=== PATIENT | male | born 1995 | race Caucasian/White ===

== ENCOUNTER 2016-12-07 21:26 | Inpatient (IN) | payer OTHER ==
[~2016-12-07] VITALS: Ht 167.6 cm; Wt 59.0 kg
[~2016-12-07 21:26] MED LIST: MULTIVITAMIN1 TAB PO; NATURAL IRON65 MG PO
--- NOTE | 2016-12-07 21:41 | NUR ---
PT WITH HX GASTROSCHISIS BIBA FROM C/O 3 SYNCOPAL EPISODES ONE HOUR AGO, ABDOMINAL PAIN, NAUSEA AND RECTAL BLEEDING. PER PT ABDOMINAL PAIN AND RECTAL BLEEDING IS CHRONIC BUT REPORTS THE BLEEDING WAS MORE THAN USUAL TODAY. PT REPORTS FEELING WEAK AND TIRED TODAY. SYNCOPAL EPISODES WITNESSED BY GIRLFRIEND. PER GIRFRIEND PT DID NOT FALL OR HIT HEAD. SHE REPORTS GUIDING HIM DOWN SO HE WON GET HURT. PT A/ X4. RESP UNLABORED. SKIN PALE.
--- NOTE | 2016-12-07 22:09 | ED GI/GU/ABDOMINAL COMPLAINT ---
History of Present Illness General Chief Complaint: General Adult Stated Complaint: BIBA RECTAL BLEEDING, SYNCOPE Source: patient Exam Limitations: no limitations Vital Signs & Intake/Output Vital Signs & Intake/Output Vital Signs Date Time Temp Pulse Resp B/P B/P Pulse O2 O2 Flow FiO2 Mean Ox Delivery Rate 12/07 2355 98.0 105 16 129/78 96 Room Air 12/07 2340 98.1 102 16 110/65 96 12/07 2254 120 18 120/75 100 12/07 2133 98.3 127 20 138/63 100 Room Air ED Intake and Output 12/08 0000 12/07 1200 Intake Total Output Total Balance Patient 130 lb Weight Allergies Coded Allergies: lactose (LACTOSE INTOLERANT 12/07/16) latex (HIVES 12/07/16) Reconcile Medications No Known Home Medications Triage Note: PT WITH HX GASTROSCHISIS BIBA FROM C/O 3 SYNCOPAL EPISODES ONE HOUR AGO, ABDOMINAL PAIN, NAUSEA AND RECTAL BLEEDING. PER PT ABDOMINAL PAIN AND RECTAL BLEEDING IS CHRONIC BUT REPORTS THE BLEEDING WAS MORE THAN USUAL TODAY. PT REPORTS FEELING WEAK AND TIRED TODAY. SYNCOPAL EPISODES WITNESSED BY GIRLFRIEND. PER GIRFRIEND PT DID NO FALL OR HIT HEAD. SHE REPORTS GUIDING HIM DOWN SO HE WON GET HURT. PT A/ X4. RESP UNLABORED. SKIN PALE. Triage Nurses Notes Reviewed? yes Duration: week(s):, getting worse Timing: recent history Radiation: no radiation Activities at Onset: none No Modifying Factors: none HPI: 21-year-old male comes into the emergency room for further evaluation of blood in his stool and syncopal episodes. 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 Patient has had multiple abdominal surgeries including multiple bowel resections. He has had issues with his abdomen is entirely. He currently lives in [place]. He used to go to [employer] even when he lived in [place]. He is currently visiting family up here. He reports that he's been having some intermittent in bright red/dark blood in his stool and bowel movements intermittently for many months now. He will get associated pain with it. She had a colonoscopy a little over a year ago which she was told he had external and internal hemorrhoids. He had external hemorrhoids fixed but never followed up for the internal hemorrhoids. Patient admits that he is not compliant taking his vitamin supplements and iron at home. Today he was feeling very weak and lightheaded and feeling like he was going to pass out. He was in bathroom with his girlfriend when she witnessed him having a syncopal episode that lasted for a few seconds. She was able to catch him before he fell to the ground. Denies any chest pain. Denies any drug use other than some marijuana use intermittently. Denies any other associated symptoms. Pain is more localized in the left lower abdomen. (SHERINE CASTANEDA) Past History Travel History Traveled to [place] past 21 day No Medical History Any Pertinent Medical History? see below for history Gastrointestinal: GASTROSCESIS Surgical History Surgical History: multiple abdominal surgeries from gastroscesis Psychosocial History What is your primary language Beninese Tobacco Use: Current Daily Use Daily Tobacco Use Amount/Type: =< 4 Cigarettes daily Family History Hx Contributory? No (SHERINE CASTANEDA) Review of Systems Review of Systems Constitutional: Reports: no symptoms. EENTM: Reports: no symptoms. Respiratory: Reports: no symptoms. Cardiovascular: Reports: see HPI. GI: Reports: see HPI. Genitourinary: Reports: no symptoms. Musculoskeletal: Reports: no symptoms. Skin: Reports: no symptoms. Neurological/Psychological: Reports: no symptoms. Hematologic/Endocrine: Reports: see HPI. Immunologic/Allergic: Reports: no symptoms. All Other Systems: Reviewed and Negative (SHERINE CASTANEDA) Physical Exam Physical Exam General Appearance: alert, awake, thin Head: atraumatic Eyes: Bilateral: normal appearance. Ears, Nose, Throat, Mouth: hearing grossly normal, moist mucous membrane Neck: normal inspection, full range of motion Respiratory: normal breath sounds, no respiratory distress Cardiovascular: regular rate/rhythm, tachycardia Gastrointestinal: soft, tenderness Rectal: external hemorrhoids, no thrombosed hemorrhoids, positive guaiac, no gross blood, Back: normal inspection Extremities: normal range of motion Neurologic/Psych: awake, alert, oriented x 3, normal gait, abnormal cerebellar tests Skin: pallor Core Measures ACS in differential dx? No Severe Sepsis Present: No Septic Shock Present: No (SHERINE CASTANEDA) Progress Differential Diagnosis: AMI, bowel obstruction, cholecystitis, diverticulitis, gastritis, hepatitis, hernia, ischemic bowel, inflamm bowel dis, pancreatitis, prostatitis, peptic ulcer, PUD/GERD, urethritis, internal hemorrhoids, external hemorrhoids, diverticulosis, Plan of Care: Orders Procedure Date/time Status Regular Diet 12/08 B Active CBC WITHOUT DIFFERENTIAL 12/08 599 Active BASIC ELECTROLYTES PLUS BUN&CR 12/08 599 Active LACTIC ACID 12/08 0101 Active Pathway - chart 12/08 002 Active House Staff 12/08 002 Active VTE Mechanical Prophylaxis 12/08 UNK Active Patient Data 12/07 2334 Active OXYGEN SETUP (GEN) 12/07 232 Active Saline Lock 12/07 2325 Active Admit to inpatient 12/07 232 Active Vital Signs 12/07 232 Active Activity/Ambulation 12/07 232 Active Code Status 12/07 232 Active BLOOD PRODUCT PICKUP 12/07 230 Active LEUKOCYTE POOR (PACKED CELLS) 12/07 225 Active Intake & Output 12/07 2246 Active PARTIAL THROMBOPLASTIN TIME 12/07 2200 Complete PROTHROMBIN TIME 12/07 2200 Complete LACTIC ACID 12/07 2200 Complete COMPREHENSIVE METABOLIC PANEL 12/07 2200 Complete CBC WITHOUT DIFFERENTIAL 12/07 2200 Complete EKG 12/07 2200 Active TYPE & SCREEN (NOT X-MATCH) 12/07 2200 Active Current Medications Sig/Kristi Start time Last Medication Dose Stop Time Status Admin Acetaminophen 650 MG Q6P PRN 12/08 29 UNVr (Tylenol) Acetaminophen 1,000 MG Q6P PRN 12/08 003 UNVr (Ofirmev) Oxycodone/ 1 TAB Q6P PRN 12/08 29 UNVr Acetaminophen (Percocet) Potassium Chloride 40 MEQ ONCE ONE 12/08 29 UNVr (K-Dur) 12/08 30 Laboratory Tests 12/07/162216: Anion Gap 11, Estimated GFR > 60, BUN/Creatinine Ratio 11.1, Glucose 107 H, Lactic Acid 2.9 H, Calcium 7.5 L, Total Bilirubin 0.3, AST 16 L, ALT 40, Alkaline Phosphatase 39, Total Protein 4.9 L, Albumin 3.1 L, Globulin 1.8 L, Albumin/Globulin Ratio 1.7, PT 12.5, INR 1.19 H, APTT 24 L, CBC w Diff NO MAN DIFF REQ, RBC 2.46 L, MCV 69.1 L, MCH 21.5 L, RDW 24.8 H, MPV 8.1, Gran % 89.3 H, Lymphocytes % 6.3 L, Monocytes % 3.7, Eosinophils % 0.2, Basophils % 0.5, Absolute Granulocytes 9.1 H, Absolute Lymphocytes 0.6 L, Absolute Monocytes 0.4, Absolute Eosinophils 0, Absolute Basophils 0.1, PUBS MCHC 31.1 L Diagnostic Imaging: Viewed by Me: CT Scan. Discussed w/RAD: CT Scan. Radiology Impression: SERVICE DATE: 12/07/16 EXAM TYPE: CAT - CT ABD & PELVIS ANGIOGRAM EXAMINATION: CT ANGIOGRAM ABDOMEN AND PELVIS CLINICAL INFORMATION: Abdominal pain, rectal bleeding, rule out ischemic colitis COMPARISON: None TECHNIQUE: Multiple axial images were obtained through the abdomen and pelvis prior to and following the administration of 83 mL of Optiray 320 intravenous contrast. Images were reviewed on a dedicated 3-D workstation. DLP: 514.36 mGy-cm FINDINGS: The lung bases are clear. The liver is homogeneous in attenuation without intrahepatic biliary ductal dilatation. The gallbladder is were not discretely visualized and may be decompressed. The spleen, pancreas, and adrenal glands are within normal limits. Bilateral nephrograms are symmetric. No hydronephrosis. No obstructing renal or ureteral calculi are present. The urinary bladder is moderately distended, with some excreted contrast material dependently. The prostate and seminal vesicles are unremarkable. Assessment of the bowel is somewhat limited due to a lack of intra -abdominal fat. However, the colon appears to entirely lie in the central to left abdomen, suspicious for sequelae of malrotation. There is diffuse prominent colonic wall thickening with some surrounding stranding, compatible with a colitis. No pneumatosis is seen. The small bowel lies in the central to right abdomen and appears mostly collapsed. No free fluid or free air is present. Although assessment of the venous structures is limited due to the phase of postcontrast imaging, the superior mesenteric vein is suspected to lie to the left of the superior mesenteric artery, supporting a diagnosis of malrotation. The aorta is normal in caliber. The celiac artery is patent. The superior mesenteric artery is patent and appears to give rise to the right hepatic artery. The bilateral renal arteries are patent. The inferior mesenteric artery is patent. Iliac arteries appear unremarkable bilaterally. No appreciable lymphadenopathy is seen by size criteria. No acute osseous findings. IMPRESSION: Diffuse wall thickening of the colon, consistent with colitis which may be inflammatory or infectious in etiology. No specific findings for ischemic colitis. The entirety of the colon appears to lie in the central to left abdomen , with small bowel located in the central to right abdomen; appearance favors intestinal malrotation. DICTATED BY: MIQUEL SHELTON MD DATE/TIME DICTATED:12/07 COURT CRIER:OCHOA DATE/TIME TRANSCRIBED:12/07/162352 CONFIDENTIAL, DO NOT COPY WITHOUT APPROPRIATE AUTHORIZATION. Initial ED EKG: normal intervals, normal p-waves, normal sinus rhythm, rate (101 ), nonspecific ST T wave chg (SHERINE CASTANEDA) Departure Departure Disposition: STILL A PATIENT Condition: Stable Clinical Impression Primary Impression: Lower GI bleed Secondary Impressions: Symptomatic anemia, Syncope Referrals: PATIENT HAS NO PRIMARY CARE DR (PCP/Family) Departure Forms: Customer Survey General Discharge Information Prescriptions: Current Visit Scripts No Known Home Medications Admission Note Spoke With: SARI CORONA MD Documentation of Exam: Documentation of any treatments & extenuating circumstances including Concerns Regarding Discharge (functional status, medication knowledge or non-compliance, living conditions, etc.) that warrant an admission rather than observation: Patient is severely anemic and will require blood transfusion. GI consultation. Serial H&H's. Positive guaiac on exam. No gross blood. (SHERINE CASTANEDA) PA/WOOL SHEARING SUPERVISOR Co-Sign Statement Statement: ED Attending supervision documentation- x I saw and evaluated the patient. I have also reviewed all the pertinent lab results and diagnostic results. I agree with the findings and the plan of care as documented in the PA's/WOOL SHEARING SUPERVISOR's documentation. [] I have reviewed the ED Record and agree with the PA's/WOOL SHEARING SUPERVISOR's documentation. [] Additions or exceptions (if any) to the PAs/WOOL SHEARING SUPERVISOR's note and plan are summarized below: [] (DANYELL HERNANDEZ,WINIFRED)
[2016-12-07 22:25] LABS: ABSOLUTE EOSINOPHIL COUNT 0 /CUMM (0.0-0.7); ABSOLUTE LYMPH COUNT 0.6 /CUMM (1.2-3.4); RED BLOOD CELL CT 2.46 /CUMM (4.70-6.10); WHITE BLOOD CELL COUNT 10.2 /CUMM (4.8-10.8)
[2016-12-07 22:28] LABS: ABSOLUTE BASOPHIL COUNT 0.1 /CUMM (0.0-0.2); ABSOLUTE GRANULOCYTE CT 9.1 /CUMM (1.4-6.5); ABSOLUTE MONOCYTE COUNT 0.4 /CUMM (0.10-0.60); BASOPHIL % 0.5 % (0.0-2.0); EOSINOPHIL % 0.2 % (0-5); GRANULOCYTE % 89.3 % (42.2-75.2); MEAN CORPUSCULAR HGB 21.5 PG (27.0-31.0); MEAN CORPUSCULAR HGB CONC 31.1 G/DL (33.0-37.0); MEAN PLATELET VOLUME 8.1 FL (7.4-10.4); PLATELET COUNT 187 /CUMM (130-400)
--- NOTE | 2016-12-07 22:32 | NUR ---
CRITICAL TEST RESULTS [id number] YENNIFER FARMER 21 M TESTS AND RESULTS: HCT 5.3. HGB 17.0 Results received and read back by: JOSE GAVIN Results received date and time: 12/07/162231 The following provider was notified of the results, and read the results back: SHERINE GARVEY Notified date and time: 12/07/16 at 2232
--- NOTE | 2016-12-07 22:39 | NUR ---
CRITICAL TEST RESULTS [id number] YENNIFER FARMER 21 M TESTS AND RESULTS: LACTIC 2.9 Results received and read back by: HO JOY Results received date and time: 12/07/162238 The following provider was notified of the results, and read the results back: GURU CARCAMO Notified date and time: 12/07/16 at 9822
[2016-12-07 22:42] LABS: PT 12.5 SEC (9.4-12.5); PTT 24 SEC (25-37)
[2016-12-07 22:44] LABS: MEAN CORPUSCULAR VOLUME 69.1 FL (80.0-94.0)
[2016-12-07 22:46] LABS: RBC DISTRIBUTION WIDTH 24.8 % (11.5-14.5)
--- NOTE | 2016-12-07 23:15 | NUR ---
PT A/O X4. RESP UNLABORED. SKIN WARM AND DRY. NO APPRENT DISTRESS. WILL CONTINUE TO MONITOR.
--- NOTE | 2016-12-07 23:26 | NUR ---
PT TO CR SCAN.
--- NOTE | 2016-12-07 23:47 | NUR ---
1ST UNIT [facility]
--- NOTE | 2016-12-07 23:58 | NUR ---
PT GOING TO ROOM 234-1
--- NOTE | 2016-12-07 23:58 | NUR ---
HOUSESTAFF AT BEDSIDE
[2016-12-08] VITALS (9 sets, daily range): BP systolic 116–132; BP diastolic 60–78
--- NOTE | 2016-12-08 00:16 | CT SCAN REPORT ---
EXAMINATION: CT ANGIOGRAM ABDOMEN AND PELVIS CLINICAL INFORMATION: Abdominal pain, rectal bleeding, rule out ischemic colitis COMPARISON: None TECHNIQUE: Multiple axial images were obtained through the abdomen and pelvis prior to and following the administration of 83 mL of Optiray 320 intravenous contrast. Images were reviewed on a dedicated 3-D workstation. DLP: 514.36 mGy-cm FINDINGS: The lung bases are clear. The liver is homogeneous in attenuation without intrahepatic biliary ductal dilatation. The gallbladder is were not discretely visualized and may be decompressed. The spleen, pancreas, and adrenal glands are within normal limits. Bilateral nephrograms are symmetric. No hydronephrosis. No obstructing renal or ureteral calculi are present. The urinary bladder is moderately distended, with some excreted contrast material dependently. The prostate and seminal vesicles are unremarkable. Assessment of the bowel is somewhat limited due to a lack of intra-abdominal fat. However, the colon appears to entirely lie in the central to left abdomen, suspicious for sequelae of malrotation. There is diffuse prominent colonic wall thickening with some surrounding stranding, compatible with a colitis. No pneumatosis is seen. The small bowel lies in the central to right abdomen and appears mostly collapsed. No free fluid or free air is present. Although assessment of the venous structures is limited due to the phase of postcontrast imaging, the superior mesenteric vein is suspected to lie to the left of the superior mesenteric artery, supporting a diagnosis of malrotation. The aorta is normal in caliber. The celiac artery is patent. The superior mesenteric artery is patent and appears to give rise to the right hepatic artery. The bilateral renal arteries are patent. The inferior mesenteric artery is patent. Iliac arteries appear unremarkable bilaterally. No appreciable lymphadenopathy is seen by size criteria. No acute osseous findings. IMPRESSION: Diffuse wall thickening of the colon, consistent with colitis which may be inflammatory or infectious in etiology. No specific findings for ischemic colitis. The entirety of the colon appears to lie in the central to left abdomen, with small bowel located in the central to right abdomen; appearance favors intestinal malrotation.
--- NOTE | 2016-12-08 00:18 | NUR ---
CALLED FOR REPORT, WAITING FOR CALL BACK
--- NOTE | 2016-12-08 00:55 | History & Physical ---
DOROTHY TUCKER 12/08/16 0055: General Information and HPI MD Statement: I have seen and personally examined YENNIFER FARMER and documented this H&P. The patient is a 21 year old M who presented with a patient stated chief complaint of rectal bleed, abdominal pain and syncope Source of Information: patient, family Exam Limitations: no limitations History of Present Illness: This is a 21-year-old male with past medical history significant for Gastroschisis, multiple abdominal surgeries at the age of 1 years, colostomy with reversal, removal of small intestines, multiple bowel resections, scar tissues, multiple admissions at [facility] for ileus, history of external hemorrhoids status post laser resection, history of internal hemorrhoids, not compliant with his vitamin supplements and iron tablets, not comprehend with regular follow-ups, smoking history presented to [facility] emergency department with chief complaint of bleeding per rectum, abdominal pain and syncope. Patient reported long-standing history of bleeding per rectum which is going on for several months. He reports fresh blood per rectum for months. He usually notices stream of blood when he passes stool. Not mixed with stool. He notices rectal bleed on and off. Also reports left lower quadrant abdominal pain which is chronic after having multiple surgeries. Patient also reported 3 episodes of syncope before coming to the emergency department. According to his girlfriend who is at bedside she reports that the patient was about to fall, however he denied falling as she caught her from falling, denied any loss of consciousness. Patient denied any chest pain, racing of heart, shortness of breath, cough, hemoptysis, headache, weakness or numbness, tingling sensations, nausea, vomiting, change in bladder habits. Patient denies any hematemesis, melena. Denies any diarrhea, constipation. Denies any tenesmus. He denies any other bleeding -denies hemoptysis denies blood in urine. Patient denies any history of peptic ulcer disease, varices, use of any NSAIDS, gastritis. Denies any diverticulitis history in the past. Last colonoscopy was 1 year ago-diagnosed with internal hemorrhoids. He has to go for surgery for internal hemorrhoids however he didn't go for the follow-up so far. offNote he was operated for external hemorrhoids with laser resection. Patient reports smoking history one pack per day for 3 years. Denies any alcohol abuse. He usually takes marijuana intermittently. Allergies/Medications Allergies: Coded Allergies: lactose (LACTOSE INTOLERANT 12/07/16) latex (HIVES 12/07/16) Home Med list No Known Home Medications Compliance With Home Meds: GOOD Past History Travel History Traveled to [place] past 21 day No Medical History Gastrointestinal: GASTROSCESIS Isolation History: Standard Surgical History Surgical History: multiple abdominal surgeries from gastroscesis Review of Systems Review of Systems Constitutional: Reports: weakness. Denies: chills, fever, malaise, unexplained weight loss. EENTM: Denies: see HPI. Cardiovascular: Denies: chest pain, edema, orthopena, palpitations, peripheral edema, syncope. Respiratory: Denies: cough, hemoptysis, orthopnea, short of breath, sputum production, stridor, wheezing. GI: Reports: abdominal pain, bloody stool, changes in stool. Denies: bloating, constipation, diarrhea, nausea, vomiting, steatorrhea. Genitourinary: Denies: discharge, dysuria, hesitation, pain, urgency. Musculoskeletal: Denies: back pain, gout, joint pain. Skin: Denies: see HPI. Neurological/Psychological: Denies: anxiety, ataxia, depressed, dementia, emotional problems, headache, numbness, tingling, tremors. Exam & Diagnostic Data Last 24 Hrs of Vital Signs/I&O Vital Signs Date Time Temp Pulse Resp B/P B/P Pulse O2 O2 Flow FiO2 Mean Ox Delivery Rate 12/08 0419 98.5 90 18 120/70 98 12/08 0230 98.3 88 18 118/72 12/08 0215 98.7 87 18 122/64 05 0140 98.7 89 18 118/78 05/ 0054 98.7 92 20 132/70 99 Room Air 12/07 2355 98.0 105 16 129/78 96 Room Air 12/07 2340 98.1 102 16 110/65 96 / 2254 120 18 120/75 100 05/ 2133 98.3 127 20 138/63 100 Room Air Intake & Output 12/08 0800 12/08 0000 12/07 1600 Intake Total Output Total Balance Patient 58.967 kg 58.967 kg Weight Weight Reported by Patient Measurement Method Physical Exam General Appearance Alert, Oriented X3, Cooperative, No Acute Distress Skin No Rashes, No Breakdown HEENT Atraumatic, PERRLA, EOMI, Mucous Membr. moist/pink, conjunctiva was pale Neck Supple, No JVD Lymphatic Cervical nl Cardiovascular Normal S1, Normal S2, flow murmur heard at apex Lungs Normal Air Movement Abdomen Normal Bowel Sounds, left lower quadrant tenderness on palpation Neurological Strength at 5/5 X4 Ext, Sensation Intact, Cranial Nerves 3-12 NL, Reflexes 2+ Extremities No Clubbing, No Cyanosis, No Edema Vascular Normal Pulses, Pulses Symmetrical Last 24 Hrs of Labs/Aidan: Laboratory Tests 12/08/16 0441: Troponin I Pending 12/08/16 0150: Lactic Acid 0.8 12/07/16 2217: Anion Gap 11, Estimated GFR > 60, BUN/Creatinine Ratio 11.1, Glucose 107 H, Lactic Acid 2.9 H, Calcium 7.5 L, Iron < 10 L, TIBC 394, Ferritin 6.6 L, Total Bilirubin 0.3, AST 16 L, ALT 40, Alkaline Phosphatase 39, Total Protein 4.9 L, Albumin 3.1 L, Globulin 1.8 L, Albumin/Globulin Ratio 1.7, Vitamin B12 285, Folate 7.9, PT 12.5, INR 1.19 H, APTT 24 L, CBC w Diff NO MAN DIFF REQ, RBC 2.46 L, MCV 69.1 L, MCH 21.5 L, RDW 24.8 H, MPV 8.1, Gran % 89.3 H, Lymphocytes % 6.3 L, Monocytes % 3.7, Eosinophils % 0.2, Basophils % 0.5, Absolute Granulocytes 9.1 H, Absolute Lymphocytes 0.6 L, Absolute Monocytes 0.4, Absolute Eosinophils 0, Absolute Basophils 0.1, PUBS MCHC 31.1 L Assessment/Plan Assessment: This is a 21-year-old male with past medical history significant for Gastroschisis, multiple abdominal surgeries at the age of 1 years, colostomy with reversal, removal of small intestines, multiple bowel resections, scar tissues, multiple admissions at [facility] for ileus, history of external hemorrhoids status post laser resection, history of internal hemorrhoids, not compliant with his vitamin supplements and iron tablets, not comprehend with regular follow-ups, smoking history presented to [facility] emergency department with chief complaint of bleeding per rectum, abdominal pain and syncope. Last colonoscopy was 1 year ago-diagnosed with internal hemorrhoids. He has to go for surgery for internal hemorrhoids however he didn't go for the follow-up so far. Vitals on admission-afebrile, tachycardic 127, respiratory rate 20, blood pressure 138/63, saturating at 100% on room air. Pertinent labs on admission-WBC 10.2, hemoglobin 5.3, hematocrit of 17, MCV 69, platelets 187. Potassium 3.1 on admission. Lactic acid 2.[address] abd Diffuse wall thickening of the colon, consistent with colitis which may be inflammatory or infectious in etiology. No specific findings for ischemic colitis. The entirety of the colon appears to lie in the central to left abdomen, with small bowel located in the central to right abdomen; appearance favors intestinal malrotation. Problem list 1. Symptomatic anemia /lower GI bleed 2. Colitis-inflammatory versus infectious 3. Hemorrhoids 4. Gastroshisis IV. Hypokalemia Symptomatic anemia/lower GI bleed Patient reported long-standing history of bleeding per rectum which is going on for several months. He reports fresh blood per rectum for months, Not mixed with stool. He notices rectal bleed on and off, ongoing for several months. Patient also reported 3 episodes of syncope from lightheadedness and tiredness. Hemoglobin 5.3 and hematocrit 17 on admission. Last colonoscopy was 1 year ago-diagnosed with internal hemorrhoids. He has to go for surgery for internal hemorrhoids however he didn't go for the follow-up so far. offNote he was operated for external hemorrhoids with laser resection. * symptomatic anemia possibly from lower GI bleed from internal hemorrhoids. * Admitted to general medicine floor for further management and blood transfusions. * Monitor vitals closely every shift * Monitor for any chest pain, shortness of breath, lightheaded or dizziness * Fall precautions * Monitor for tachycardia * Monitor for orthostatic hypotension * 2 large bore IV lines * Normal saline if hypotensive * Received 2 bags of blood transfusions in the emergency room * Will check post transfusion CBC * We'll monitor urinary urine output and mental status changes * Transfuse if hemoglobin is less than 8 * Will check iron studies, B12, folate, reticulocyte count * Stool guaiac was positive in the ER. * We'll check stool cultures and stool for ova and parasites * Gastro consult Left lower quadrant pain Patient presented with left lower quadrant pain which is ongoing for several months. Denied any fever and leukocytosis on admission however CAT scan showed diffuse wall thickening of colon consistent with colitis which may be inflammatory or infectious in etiology. * Monitor for fever, leukocytosis * Started on IV antibiotics ceftriaxone and Flagyl for colitis Hemorrhoids Last colonoscopy was 1 year ago-diagnosed with internal hemorrhoids. He has to go for surgery for internal hemorrhoids however he didn't go for the follow-up so far. offNote he was operated for external hemorrhoids with laser resection. * Patient may need colonoscopy * Gastroenterology consult in the morning * Closely follow-up H&H Gastroshisis past medical history significant for Gastroschisis, multiple abdominal surgeries at the age of 1 years, colostomy with reversal, removal of small intestines, multiple bowel resections, scar tissues, multiple admissions at [facility] for ileus. * We'll obtain records from a [facility] for further information Hypokalemia Potassium 3.1 on admission KDUR in the emergency room 40 mEq once Will monitor BEP in the morning Replete potassium according to He is full code Pain pathway Tylenol and Percocet Nothing by mouth for possible gastro procedure DVT prophylaxis alps As Ranked By This Provider Problem List: 1. Lower GI bleed 2. Symptomatic anemia 3. Syncope Core Measures/Miscellaneous Acute Coronary Syndrome ACS Diagnosis: No Cerebrovascular Accident CVA/TIA Diagnosis: No Congestive Heart Failure CHF Diagnosis: No Venous Thromboembolism VTE Risk Factors: Acute medical illness, Smoking No [facility] VTE prophylaxis d/t: No contraindications No VTE Pharm Prophylaxis d/t: No contraindications VTE Diagnosis: No VTE Type: NONE VTE Confirmed by (Test): NONE Severe Sepsis Severe Sepsis Present: No Septic Shock Septic Shock Present: No Miscellaneous Documentation Attending Case Discussed With: SARI CORONA MD Primary Care Physician: PATIENT HAS NO PRIMARY CARE DR Patient sees these Specialists lean consultant Level of Patient Care: General Medicine LORE JALLOH 12/08/16 0052: Resident Review Statement Resident Statement: examined this patient, discussed with nutrition intern, agreed with nutrition intern Other Findings: Mr. Farmer is a pleasant 21-year-old gentleman with a past medical history of gastrochesis status post corrective surgery with multiple complications requiring a partial colectomy [per the patients mother], and multiple recurrent bouts of ileus, all treated at [facility] who presents to the hospital emergency department with complaints of 3 episodes of syncope. The patient states that he was in the shower with his girlfriend when he syncopized. She caught him in and brought him down safely. He denies any trauma or head strike. He had to sit subsequent syncopal episodes at which point he decided to come to the emergency department. The patient states that if it wasn't for the syncopal episode, he would not come emergency department. Upon further questioning, the patient states that he has been having bright red blood per rectum for many years, which comes in bouts. This bout has been going on for 1.5 months, and is worse over the last 5 days. He states that he was told he had internal and external hemorrhoids, and had laser hemorrhoidoplasty for his external hemorrhoids. He has not followed up for his internal hemorrhoids. HE states he had a colonoscopy last year, at which point he was told again he had internal hemorrhoids. He states that he lean consultant told him he does not have Crohn's disease at that point. Regarding his bright red blood per rectum, he states he has a feeling of urgency when he needs to have a bowel movement. When he goes to the bathroom, he has bleeding. He states that it is not always associated with stool and at times he has only tiffanie blood at times when it is associated with stool, he states he cannot determine if it is at the beginning or end of the bowel movement. He states the toilet bowl is always filled with tiffanie blood and it is not just bleeding when he wipes. He states his bowel habits haven't changed, and given his previous surgeries, he always has soft stools. Unfortunately he has not sought out medical advice as he recently moved to [place] last year. Aside from fatigue and syncope he denies any other symptoms. He denies any lightheadedness, diplopia, tinnitus, dizziness, palpitations or dyspnea. He denies any chest pain. Social and family history, physical exam and labs/imaging as dictated above. Physical exam was positive for fecal occult blood, and external hemorrhoids. H/ H 5.3 (baseline unknown), MCV 69, lactic acid 2.9. Potassium 3.1. Abdominal CT shows signs of colitis. Problem List/Assessment and Plan We will admit to for treatment of the following problems: Acute on chronic blood loss anemia * H/H 5.3/17. 2 units of PRBC ordered and being transfused at the moment. * The fact that the MCV is low, indicates a chronic process - ? hemorrhoidal bleeding. Anal fissure less likely given the lack of pain with BM and physical exam findings. * Angiodysplasia and AVMs are much less likely given the patients age. * We will order a pre-transfusion iron panel, reticulocyte count, B12 and folate levels to evalute for chronicity of this bleed. * We will also get GI on board and keep the patient NPO overnight for possible intervention tomorrow. Colitis on CT * ?Infectious vs inflammatory * Per the patient, his previous colonoscopy was negative for infectious bowel disease. * Given these findings on imaging, we will empirically treat with ceftriaxone and Flagyl given his dysentery. * We will send stool cultures as well as ova and parasites. * We'll also get gastroenterology on board in the morning. Hypokalemia * K was 3.1 on admission * 40 mEq PO given * recheck in the am Full code NPO ALPS for dvt ppx pain path as ordered SARI CORONA 12/08/16 0715: Attending MD Review Statement Attending Statement Attending MD Statement: examined this patient, discuss w/resident/PA/PHYSIOTHERAPY AIDE, agreed w/resident/PA/PHYSIOTHERAPY AIDE, reviewed EMR data (avail), reviewed images, amended to note Attending Assessment/Plan: CC: Passing out PMH: GASTROSCESIS at , recurrent ileus thereafter Patient came to ER for more than usual rectal bleeding, abdominal pain, nausea, and 3 episodes of passing out. He was feeling weak and tired, syncopal episodes were witnessed by girlfriend, he did not fall out or hit his head, she caught him and guided him down. Patient complains of ongoing rectal bleeding since more than 1 year, investigated with colonoscopy 1 year back in [place], was found to have external and internal hemorrhoids. Since then patient had been bleeding intermittently, sometimes associated with abdominal pain, never presyncopal or syncopal, stool sometimes mixed with blood or sometimes only blood. With this episode of rectal bleeding since last 3-4 days has been associated with abdominal pain, and bleeding more than usual. Vitals: Afebrile, tachycardic at presentation at 127 improved to 90s, blood pressure, RR, O2 saturation in acceptable range. On exam: A O 3, cooperative, no acute distress, pale, neck supple, JVD normal, no lymphadenopathy, mucosa dry, no focal neurological deficit, no dependent edema, no obvious skin rashes or inflammation CVS: S1-S2, RRR. RS: Clear to auscultate bilaterally. Abdomen: Soft, NT, ND, bowel sounds present. Peripheral pulses and perfusion normal Labs: Hemoglobin 5.3, hematocrit 17.0, MCV 69, RDW 24, BMP unremarkable, lactate 2.9, INR 1.19, all within 3.1 CTA abdomen and pelvis: Diffuse wall thickening of the colon, consistent with colitis which may be inflammatory or infectious in etiology. No specific findings for ischemic colitis. The entirety of the colon appears to lie in the central to left abdomen, with small bowel located in the central to right abdomen; appearance favors intestinal malrotation. A and P Patient came after 3 episodes of passing out, no history of trauma or actual fall, witnessed by his girlfriend. Patient had been having long time rectal bleeding, worsened last 2-3 days, with some abdominal pain. Syncopal episode appears secondary to symptomatic anemia. Rectal exam done in ER by PA does not show any tiffanie blood but guaiac positive. Currently patient hemodynamically stable, anemia appears acute on chronic. CT obtain and shows evidence of colitis , unclear infectious versus inflammatory, patient does not follow much with doctors and noncompliant with iron, poor historian. # Symptomatic anemia secondary to acute on chronic blood loss # Syncope secondary to anemia # Colitis # History of complicated abdominal surgery for GASTROSCESIS, with reconstructions up to 1 years of age. Recurrent ileus last one 3 years back - Admit on general medicine floor - Continue blood transfusion for 2 PRBCs - Repeat H&H after transfusion - Continue ceftriaxone and metronidazole IV for colitis - Obtain stool culture - GI consult - Stool for C. difficile - Trend lactate - Repeat CBC, BMP, LFT in a.m. - Iron studies, reticulocyte count, folic acid, B12 to sample and lab - Nothing by mouth - Alps for DVT prophylaxis - adequate pain control
--- NOTE | 2016-12-08 01:27 | NUR ---
PT ARRIVED TO FLOOR VIA STRETCHER FROM ED AT 0030. TRANSFERED TO BED INDEPENDENTLY. 1 UNIT OF BLOOD RUNNING THROUGH IV RAC. A/O, RA DENIES PAIN OR SOB. FAMILY AT BEDSIDE. WILL MONITOR.
--- NOTE | 2016-12-08 04:21 | NUR ---
PT COMPLAINING OF 3/10 CHEST SORENESS, RADIATING TO BACK. VSS 120/70 HR90 98.5 98%RA; MD TUCKER AWARE. WILL CLOSELY MONITOR.
--- NOTE | 2016-12-08 07:16 | Admission Certification ---
Admission Certification Certification Statement - As attending physician, I certify that at the time of - admission, based on clinical presentation, severity of - symptoms, need for further diagnostic testing and - therapeutic interventions, and risk of adverse outcomes - without in-hospital treatment, in my clinical assessment, - this patient requires an acute hospital stay for a minimum - of two nights or longer. I have also considered psychsocial - factors such as support system, advanced age, financial - issues, cognitive issues, and failed out-patient treatments, - past re-admission history, safety of patient, and lack of - compliance as applicable. Specific rationale supporting this admission is: Symptomatic anemia, lower GI bleed
[2016-12-08 09:00] LABS: ABSOLUTE BASOPHIL COUNT 0 /CUMM (0.0-0.2); ABSOLUTE EOSINOPHIL COUNT 0 /CUMM (0.0-0.7); ABSOLUTE GRANULOCYTE CT 4.6 /CUMM (1.4-6.5); ABSOLUTE LYMPH COUNT 1.6 /CUMM (1.2-3.4); ABSOLUTE MONOCYTE COUNT 0.6 /CUMM (0.10-0.60); WHITE BLOOD CELL COUNT 6.9 /CUMM (4.8-10.8)
--- NOTE | 2016-12-08 09:20 | Cons- Gastroenterology ---
General Information and HPI Consulting Request Date of Consult: 12/08/16 Requested By: MANI MEZA M.D Reason for Consult: Rectal bleeding, anemia, colitis on ct scan. 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 He reports having intermittent rectal bleeding for the past several years which she notes has previously been attributed to hemorrhoids based on a negative colonoscopy about a year and a half ago which was done at [facility] per his report. He also notes having hemorrhoidectomies in the past, but he states that his internal hemorrhoids have never been treated. Over the past week or so he has been having more profuse rectal bleeding which she describes as passing pure blood which is separate from his stool. His bowel movements are soft to loose and he notes that he is never really had solid bowel movements since he was a child, but it has occasionally been more formed. He does have some vague abdominal discomfort which he has had for the past week and he notes that this discomfort is not associated with eating nor is it alleviated or exacerbated with his bowel movements. He is also without any heartburn, dysphagia, or vomiting. Over the past week he has been having progressive weakness and he had a few syncopal episodes which is what prompted him to come to the emergency room. In the ER he was found to be profoundly anemic with a hemoglobin of 5.3 and MCV of 69. He was hemodynamically stable and he was admitted to the medical service and transfused with 2 units of packed red blood cells and he was also started on IV antibiotics for colitis appreciated on the CAT scan. Since admission he has been afebrile and hemodynamically stable. He did have one bowel movement this morning which he notes had some blood in it. Allergies/Medications Allergies: Coded Allergies: lactose (LACTOSE INTOLERANT 12/07/16) latex (HIVES 12/07/16) Home Med List: Ferrous Sulfate 325 MG (65 MG IRON) TABLET 1 TAB PO TID ANEMIA Hydrocortisone (Anusol-Hc) 2.5 % CREAM..G. 1 PELON TOP BID HEMORRHOIDS apply to affected area(s) Magnesium Oxide 400 MG TABLET 1 TAB PO DAILY HYPOMAGMESIA Potassium Chloride (K-Tab ER) 20 MEQ TABLET.ER 1 TAB PO DAILY HYPOKALEMIA Current Medications: Current Medications Sig/Kristi Start time Last Medication Dose Route Stop Time Status Admin Acetaminophen 650 MG Q6P PRN 12/08 003 AC PO Acetaminophen 1,000 MG Q6P PRN 12/08 0030 AC IV Ceftriaxone Sodium 1,000 MG Q24H 12/08 0200 DC 12/08 IV 0404 Metronidazole 500 MG Q8H 12/08 0200 DC 12/08 N/A 1 UNIT IV 0404 Oxycodone/ 1 TAB Q6P PRN 12/08 0030 AC Acetaminophen PO Potassium Chloride 40 MEQ ONCE ONE 12/08 003 DC 12/08 PO 12/08 0031 0403 Sodium Phosphate 2 UNIT ONCE ONE 12/08 0945 UNVr MD 12/08 0946 Past History Travel History Traveled to [place] past 21 day No Medical History Blood Transfusion Hx: Yes Neurological: NONE EENT: NONE Cardiovascular: NONE Respiratory: NONE Gastrointestinal: GASTROSCESIS HEMORRHOIDS Hepatic: NONE Renal: NONE Musculoskeletal: NONE Psychiatric: NONE Endocrine: NONE Blood Disorders: NONE Cancer(s): NONE CORPORATE ACCOUNTING MANAGER/Reproductive: NONE Surgical History Surgical History: multiple abdominal surgeries from gastroscesis Psychosocial History Where Do You Live? Home Services at Home: None Smoking Status: Current Everyday Smoker Review of Systems Review of Systems Constitutional: Reports: malaise, weakness. Denies: diaphoresis, fever. EENTM: Denies: no symptoms. Cardiovascular: Reports: syncope. Denies: chest pain, edema, peripheral edema. Respiratory: Denies: no symptoms. GI: Reports: see HPI. Genitourinary: Denies: no symptoms. Musculoskeletal: Denies: no symptoms. Skin: Denies: no symptoms. Neurological/Psychological: Denies: no symptoms. Hematologic/Endocrine: Denies: no symptoms. Immunologic/Allergic: Denies: no symptoms. All Other Systems: Reviewed and Negative Exam & Diagnostic Data Vital Signs and I&O Vital Signs Date Time Temp Pulse Resp B/P B/P Pulse O2 O2 Flow FiO2 Mean Ox Delivery Rate 12/08 0419 98.5 90 18 120/70 98 12/08 0230 98.3 88 18 118/72 12/08 0215 98.7 87 18 122/64 12/08 0140 98.7 89 18 118/78 12/08 0054 98.7 92 20 132/70 99 Room Air 12/07 2355 98.0 105 16 129/78 96 Room Air 12/07 2340 98.1 102 16 110/65 96 12/07 2254 120 18 120/75 100 12/07 2133 98.3 127 20 138/63 100 Room Air Intake & Output 12/08 0400 12/07 04012/06 0400 Intake Total 600 Output Total Balance 600 Intake, Blood 450 Product Intake, IV 150 Patient 130 lb Weight Weight Reported by Patient Measurement Method Physical Exam General Appearance: no apparent distress, alert, awake, comfortable, thin Head: atraumatic, normal appearance Eyes: Bilateral: normal appearance. Ears, Nose, Throat: normal pharynx, normal ENT inspection Neck: normal inspection, supple, full range of motion Respiratory: normal breath sounds, chest non-tender Cardiovascular: regular rate/rhythm Gastrointestinal: soft, non-tender, well healed surgical incisions Rectal: deferred Back: normal inspection, normal range of motion Extremities: normal inspection, normal capillary refill Neurologic/Psych: no motor/sensory deficits, awake, alert, oriented x 3 Skin: intact, normal color, warm/dry Results Pertinent Lab Results: Laboratory Tests 12/08 12/08 12/08 12/08 0635 0635 0441 0150 Chemistry Sodium (137 - 145 mmol/L) 138 Potassium (3.5 - 5.1 mmol/L) 3.4 L Chloride (98 - 107 mmol/L) 101 Carbon Dioxide (22 - 30 mmol/L) 27 Anion Gap (5 - 16) 9 BUN (9 - 20 mg/dL) 8 L Creatinine (0.7 - 1.2 mg/dL) 0.9 Estimated GFR (>60 ml/min) > 60 BUN/Creatinine Ratio (7 - 25 %) 8.9 Lactic Acid (0.7 - 2.1 mmol/L) 0.8 Troponin I (<0.11 ng/ml) < 0.01 Vitamin B12 (239 - 931 pg/mL) Pending RBC Folate Pending Hematology CBC w Diff Pending WBC Pending RBC Pending Hgb Pending Hct Pending MCV Pending MCH Pending RDW Pending Plt Count Pending MPV Pending PUBS MCHC Pending Retic Count Pending 12/07 2216 Chemistry Sodium (137 - 145 mmol/L) 134 L Potassium (3.5 - 5.1 mmol/L) 3.1 L Chloride (98 - 107 mmol/L) 98 Carbon Dioxide (22 - 30 mmol/L) 25 Anion Gap (5 - 16) 11 BUN (9 - 20 mg/dL) 10 Creatinine (0.7 - 1.2 mg/dL) 0.9 Estimated GFR (>60 ml/min) > 60 BUN/Creatinine Ratio (7 - 25 %) 11.1 Glucose (65 - 99 mg/dL) 107 H Lactic Acid (0.7 - 2.1 mmol/L) 2.9 H Calcium (8.4 - 10.2 mg/dL) 7.5 L Iron (49 - 181 ug/dL) < 10 L TIBC (261 - 462 ug/dL) 394 Ferritin (17.9 - 464 ng/mL) 6.6 L Total Bilirubin (0.2 - 1.3 mg/dL) 0.3 AST (17 - 59 U/L) 16 L ALT (21 - 72 U/L) 40 Alkaline Phosphatase (< 127 U/L) 39 Total Protein (6.3 - 8.2 g/dL) 4.9 L Albumin (3.5 - 5.0 g/dL) 3.1 L Globulin (1.9 - 4.2 gm/dL) 1.8 L Albumin/Globulin Ratio (1.1 - 2.2 %) 1.7 Vitamin B12 (239 - 931 pg/mL) 285 Folate (2.76 - 20.0 ng/mL) 7.9 Coagulation PT (9.4 - 12.5 SEC) 12.5 INR (0.90 - 1.17) 1.19 H APTT (25 - 37 SEC) 24 L Hematology CBC w Diff NO MAN DIFF REQ WBC (4.8 - 10.8 /CUMM) 10.2 RBC (4.70 - 6.10 /CUMM) 2.46 L Hgb (14.0 - 18.0 G/DL) 5.3 *L Hct (42 - 52 %) 17.0 *L MCV (80.0 - 94.0 FL) 69.1 L MCH (27.0 - 31.0 PG) 21.5 L RDW (11.5 - 14.5 %) 24.8 H Plt Count (130 - 400 /CUMM) 187 MPV (7.4 - 10.4 FL) 8.1 Gran % (42.2 - 75.2 %) 89.3 H Lymphocytes % (20.5 - 51.1 %) 6.3 L Monocytes % (1.7 - 9.3 %) 3.7 Eosinophils % (0 - 5 %) 0.2 Basophils % (0.0 - 2.0 %) 0.5 Absolute Granulocytes (1.4 - 6.5 /CUMM) 9.1 H Absolute Lymphocytes (1.2 - 3.4 /CUMM) 0.6 L Absolute Monocytes (0.10 - 0.60 /CUMM) 0.4 Absolute Eosinophils (0.0 - 0.7 /CUMM) 0 Absolute Basophils (0.0 - 0.2 /CUMM) 0.1 PUBS MCHC (33.0 - 37.0 G/DL) 31.1 L Imaging/Other Studies: EXAM TYPE: CAT - CT ABD & PELVIS ANGIOGRAM EXAMINATION: CT ANGIOGRAM ABDOMEN AND PELVIS CLINICAL INFORMATION: Abdominal pain, rectal bleeding, rule out ischemic colitis COMPARISON: None TECHNIQUE: Multiple axial images were obtained through the abdomen and pelvis prior to and following the administration of 83 mL of Optiray 320 intravenous contrast. Images were reviewed on a dedicated 3-D workstation. DLP: 514.36 mGy-cm FINDINGS: The lung bases are clear. The liver is homogeneous in attenuation without intrahepatic biliary ductal dilatation. The gallbladder is were not discretely visualized and may be decompressed. The spleen, pancreas, and adrenal glands are within normal limits. Bilateral nephrograms are symmetric. No hydronephrosis. No obstructing renal or ureteral calculi are present. The urinary bladder is moderately distended, with some excreted contrast material dependently. The prostate and seminal vesicles are unremarkable. Assessment of the bowel is somewhat limited due to a lack of intra-abdominal fat. However, the colon appears to entirely lie in the central to left abdomen, suspicious for sequelae of malrotation. There is diffuse prominent colonic wall thickening with some surrounding stranding, compatible with a colitis. No pneumatosis is seen. The small bowel lies in the central to right abdomen and appears mostly collapsed. No free fluid or free air is present. Although assessment of the venous structures is limited due to the phase of postcontrast imaging, the superior mesenteric vein is suspected to lie to the left of the superior mesenteric artery, supporting a diagnosis of malrotation. The aorta is normal in caliber. The celiac artery is patent. The superior mesenteric artery is patent and appears to give rise to the right hepatic artery. The bilateral renal arteries are patent. The inferior mesenteric artery is patent. Iliac arteries appear unremarkable bilaterally. No appreciable lymphadenopathy is seen by size criteria. No acute osseous findings. IMPRESSION: Diffuse wall thickening of the colon, consistent with colitis which may be inflammatory or infectious in etiology. No specific findings for ischemic colitis. The entirety of the colon appears to lie in the central to left abdomen, with small bowel located in the central to right abdomen; appearance favors intestinal malrotation. Assessment/Plan Assessment/Recommendations: Assessment: Mr. Reardon is a 21-year-old male with a history of gastroshicis which was treated as a child with multiple abdominal surgeries who presented to with rectal bleeding and a profound microcytic anemia of unclear etiology. He reports having a negative colonoscopy about a year and a half ago when he had similar symptoms so that this is accurate inflammatory bowel disease is less likely, but considering the bowel wall thickening appreciated on his recent CAT scan his reports of chronic loose stool underlying colitis/IBD is certainly possible. That being said, I suspect the CAT scan findings are more likely related to post surgical changes that he had as a child. While his history is more consistent with bleeding from hemorrhoids as he reports passing blood separate from the stool as this would be an unusual cause of such a profound anemia I will plan to perform a diagnostic flexible sigmoidoscopy will sigmoidoscopy later today to rule out underlying IBD. His anemia is microcytic which suggests he has been losing blood over several months and I am therefore hopeful that he will be able to be discharged home after he has been appropriately transfused. Recommendaions: 1. Follow CBC and transfuse as needed to keep Hgb > 7. 2. Keep NPO and administer 2 fleets enemas in anticipation for a diagnostic flexible sigmoidoscopy to be performed later today. 3. Discontinue Abx 4. Notify GI for signs of hemodynamically significant bleeding. 5. Start oral iron supplementation after the sigmoidoscopy. I will continue to follow this patient and make further recommendations based on his clinical course and the results of the sigmoidoscopy to be performed later today. Problem List: 1. Lower GI bleed Consult Acknowledgment - Thank you for your consult request.
[2016-12-08 09:45] LABS: BASOPHIL % 0.7 % (0.0-2.0); EOSINOPHIL % 0.6 % (0-5); GRANULOCYTE % 66.4 % (42.2-75.2); MEAN CORPUSCULAR HGB CONC 32.2 G/DL (33.0-37.0); MEAN PLATELET VOLUME 10.6 FL (7.4-10.4); PLATELET COUNT 194 /CUMM (130-400); RBC DISTRIBUTION WIDTH 27.4 % (11.5-14.5); RED BLOOD CELL CT 2.89 /CUMM (4.70-6.10)
[2016-12-08 09:53] LABS: HEMATOCRIT 22.1 % (42-52); MEAN CORPUSCULAR HGB 24.6 PG (27.0-31.0); MEAN CORPUSCULAR VOLUME 76.5 FL (80.0-94.0)
--- NOTE | 2016-12-08 14:11 | Proc Note Colonoscopy ---
Colonoscopy Procedure Medical History: unchanged (see meditech consult) Mental Status: alert/oriented Heart/Lung Eval Prior to Sedation: within normal limits Candidate for Sedation? Yes Date of Last Colonoscopy: Approximatlely 2 years ago per patient report. Procedure Date: 12/08/16 Procedure Type: colonoscopy Interior Painter: Jarrett Oliveira MD ASA Classification: III Indications: Rectal bleeding. Microcytic anemia. Colitis on CAT scan. Instrument (Colonoscope): single channel Meds Received: MAC Patient's Tolerance: good Complications: none Extent Reached: neoterminal ileum Prep: good Procedure: After getting written informed consent the patient was placed in the left lateral decubitus position with pulse oximetry, cardiac monitoring, and supplemental oxygen was given. IV sedation was given until the desired effect was achieved. A rectal exam was performed which was normal. A high definition variable stiffness Olympus colonoscope was then inserted into the anus and advanced to the neoterminal ileum with little difficulty. Retroflexed views were obtained and photodocumentation was obtained. Close inspection of the colonic mucosa was performed on insertion and withdrawal of the colonoscope with a withdrawal time that was adequate in length to closely inspect all folds and blas of the colon. Findings: The visualized colonic mucosa including views of the rectum, sigmoid, descending , transverse, and ascending and there was a normal-appearing right-sided surgical anastomosis. The neoterminal ileum was able to be entered a short distance and was grossly normal in appearance with normal villi. There were no polyps, masses, ulcers, significant erythematous changes, AVMs or diverticula appreciated. Retroflexed views in the rectum revealed small inflamed internal hemorrhoids which were also appreciated on close inspection of the anal canal when the scope was withdrawn. Impression: 1. Grossly normal colonic mucosa and normal-appearing right-sided surgical anastomosis. 2. Inflamed internal hemorrhoids. 3. No active bleeding or evidence of inflammatory bowel disease appreciated. Recommendations: 1. Follow CBCs and transfuse as needed to keep his hemoglobin greater than 7. 2. Start oral iron supplementation 325 mg by mouth 3 times a day. 3. Administer local/topical treatment for hemorrhoidal bleeding as needed and consideration should be given for a colorectal surgery consult for more definitive treatment which can be done as an outpatient. 4. Consideration should be given for an upper endoscopy and small bowel PillCam to further evaluate the etiology of his anemia which can also be pursued as an outpatient. Followup Colonscopy Screen In: at the age of 49
[2016-12-08] MEDS ORDERED: FERROUS SULFAT325 M3 PO ×2 (14:21→14:35)
--- NOTE | 2016-12-08 14:35 | Patient Discharge Instructions ---
Discharge Instructions General Discharge Information Special Instructions: -Follow up with your buffer nickel as scheduled. -Continue local aointment for hemorrhoids. f/u with PCP in 1 week and check hemoglobin level, potassium and magnesium levels. -Take iron supplements three times a day for your low blood count. This medication may cause constipation. Acute Coronary Syndrome Inclusion Criteria At DC or during hospital stay patient has or had the following: ACS DIAGNOSIS No Discharge Core Measures Meds if any: Prescribed or Continued at Discharge Meds if any: NOT Prescribed or Continued at Discharge Congestive Heart Failure Inclusion Criteria At DC or during hospital stay patient has or had the following: CHF DIAGNOSIS No Discharge Core Measures Meds if any: Prescribed or Continued at Discharge Meds if any: NOT Prescribed or Continued at Discharge Cerebrovascular accident Inclusion Criteria At DC or during hospital stay patient has or had the following: CVA/TIA Diagnosis No Discharge Core Measures Meds if any: Prescribed or Continued at Discharge Meds if any: NOT Prescribed or Continued at Discharge Venous thromboembolism Inclusion Criteria VTE Diagnosis No VTE Type NONE VTE Confirmed by (Test) NONE Discharge Core Measures - Per Current guidelines, there needs to be overlap - treatment for the first 5 days of Warfarin therapy. - If discharged on Warfarin prior to 5 days of - overlap therapy, the patient will need to be - assessed for post discharge needs including - *Post discharge parental anticoagulation - *Warfarin and/or parental anticoagulation education - *Follow up date to check INR post discharge At least 5 days overlap therapy as Inpatient No Meds if any: Prescribed or Continued at Discharge Note: Overlap Therapy is Warfarin and Anticoagulant Meds if any: NOT Prescribed or Continued at Discharge
[2016-12-08] MEDS ORDERED: ANUSOL-HC30 GM TOP (14:37)
[2016-12-08 16:11] LABS: ABSOLUTE BASOPHIL COUNT 0 /CUMM (0.0-0.2); ABSOLUTE EOSINOPHIL COUNT 0.1 /CUMM (0.0-0.7); ABSOLUTE GRANULOCYTE CT 3.3 /CUMM (1.4-6.5); ABSOLUTE LYMPH COUNT 1.4 /CUMM (1.2-3.4); ABSOLUTE MONOCYTE COUNT 0.5 /CUMM (0.10-0.60); BASOPHIL % 0.4 % (0.0-2.0); EOSINOPHIL % 1.2 % (0-5); GRANULOCYTE % 62.9 % (42.2-75.2); HEMATOCRIT 21.7 % (42-52); MEAN CORPUSCULAR HGB CONC 31.7 G/DL (33.0-37.0); MEAN CORPUSCULAR VOLUME 75.8 FL (80.0-94.0); MEAN PLATELET VOLUME 10.2 FL (7.4-10.4); PLATELET COUNT 204 /CUMM (130-400); RBC DISTRIBUTION WIDTH 27.3 % (11.5-14.5); RED BLOOD CELL CT 2.86 /CUMM (4.70-6.10); WHITE BLOOD CELL COUNT 5.2 /CUMM (4.8-10.8)
[2016-12-09 06:52] VITALS: BP 104/66
[2016-12-09 09:03] LABS: ABSOLUTE BASOPHIL COUNT 0 /CUMM (0.0-0.2); ABSOLUTE EOSINOPHIL COUNT 0.1 /CUMM (0.0-0.7); ABSOLUTE GRANULOCYTE CT 2.2 /CUMM (1.4-6.5); ABSOLUTE LYMPH COUNT 1.7 /CUMM (1.2-3.4); ABSOLUTE MONOCYTE COUNT 0.4 /CUMM (0.10-0.60); GRANULOCYTE % 48.8 % (42.2-75.2); HEMATOCRIT 21.1 % (42-52); MEAN CORPUSCULAR HGB 25.6 PG (27.0-31.0); MEAN CORPUSCULAR HGB CONC 32.9 G/DL (33.0-37.0); MEAN CORPUSCULAR VOLUME 77.8 FL (80.0-94.0); MEAN PLATELET VOLUME 10.1 FL (7.4-10.4); PLATELET COUNT 169 /CUMM (130-400); RBC DISTRIBUTION WIDTH 23.8 % (11.5-14.5); RED BLOOD CELL CT 2.71 /CUMM (4.70-6.10); WHITE BLOOD CELL COUNT 4.6 /CUMM (4.8-10.8)
--- NOTE | 2016-12-09 09:51 | PN- Housestaff ---
[facility] 0926: Subjective Follow-up For: Symptomatic anemia /lower GI bleed Complaints: no complaints Subjective: Seen and examined the patient at bedside. He feels much better today with no bleeding overnight. Denies any dizziness, chest pain, shortness of breath, nausea, vomiting, fatigue. Has been ambulating well. Had colonoscopy yesterday which showed grossly normal mucosa and normal-appearing right-sided surgical anastomosis. Some inflamed internal hemorrhoids were seen. No active bleeding or evidence of inflammation was noted. His bleeding/anemia was likely secondary to the internal hemorrhoids and is now on iron supplementation and topical cream for hemorrhoids. Review of Systems Constitutional: Reports: no symptoms. EENTM: Reports: no symptoms. Cardiovascular: Reports: no symptoms. Respiratory: Reports: no symptoms. Gastrointestinal: Reports: changes in stool. Genitourinary: Reports: no symptoms. Musculoskeletal: Reports: no symptoms. Objective Last 24 Hrs of Vital Signs/I&O Vital Signs Date Time Temp Pulse Resp B/P B/P Pulse O2 O2 Flow FiO2 Mean Ox Delivery Rate 12/09 0652 98.6 62 16 104/66 99 Room Air 05/05 2236 98.6 81 16 116/60 98 Room Air 05/05 1952 99.2 70 20 128/62 100 Room Air 05/05 1703 99.1 88 20 130/60 99 Room Air 05/05 1343 98.2 90 20 120/68 98 Intake & Output 05/06 1600 05/06 0800 05/06 0000 Intake Total 240 870 Output Total Balance 240 870 Intake, Blood 350 Product Intake, IV 0 20 Intake, Oral 240 500 Number 2 Bowel Movements Physical Exam General Appearance: Alert, Oriented X3, Cooperative, No Acute Distress Skin: midline scar on abdomen previous surgery HEENT: Atraumatic, PERRLA, EOMI, Mucous Membr. moist/pink Neck: Supple, No JVD Lymphatic: Cervical nl Cardiovascular: Regular Rate, Normal S1, Normal S2, No Murmurs Lungs: Clear to Auscultation, Normal Air Movement Abdomen: Normal Bowel Sounds, Soft, No Tenderness Neurological: Normal Speech, Normal Tone, Sensation Intact, Cranial Nerves 3-12 NL, Reflexes 2+ Extremities: No Clubbing, No Cyanosis, No Edema, Normal Pulses Current Medications: Current Medications Sig/Kristi Start time Last Medication Dose Route Stop Time Status Admin Acetaminophen 650 MG Q6P PRN 12/08 0030 AC PO Acetaminophen 1,000 MG Q6P PRN 12/08 0030 DC IV Chlorhexidine 1 GM .STK-MED ONE 12/08 1530 DC Gluconate TOP 12/08 1531 Magnesium Chloride 64 MG BID 12/09 1000 AC PO Oxycodone/ 1 TAB Q6P PRN 12/08 0030 AC Acetaminophen PO Patient Medication 1 ED .STK-MED ONE 12/08 1419 SC Teaching ED 12/08 1420 Patient Medication 1 ED .STK-MED ONE 12/08 1249 SC Teaching ED 12/08 1250 Potassium Chloride 40 MEQ BID 12/09 1000 AC PO Sodium Phosphate 2 UNIT ONCE ONE 12/08 0945 DC 12/08 NC 12/08 0946 1006 Last 24 Hrs of Lab/Aidan Results Last 24 Hrs of Labs/Mics: Laboratory Tests 12/09/16 0730: Anion Gap 9, Estimated GFR > 60, BUN/Creatinine Ratio 8.9, Magnesium 1.5 L, CBC w Diff Pending, WBC Pending, RBC Pending, Hgb Pending, Hct Pending, MCV Pending, MCH Pending, RDW Pending, Plt Count Pending, MPV Pending, PUBS MCHC Pending 12/08/16 1535: CBC w Diff NO MAN DIFF REQ, RBC 2.86 L, MCV 75.8 L, MCH 24.0 L, RDW 27.3 H, MPV 10.2, Gran % 62.9, Lymphocytes % 26.6, Monocytes % 8.9, Eosinophils % 1.2, Basophils % 0.4, Absolute Granulocytes 3.3, Absolute Lymphocytes 1.4, Absolute Monocytes 0.5, Absolute Eosinophils 0.1, Absolute Basophils 0, PUBS MCHC 31.7 L Assessment/Plan Assessment: Mr. Reardon is a pleasant 21-year-old gentleman with a past medical history of gastrochesis status post corrective surgery with multiple complications requiring a partial colectomy [per the patients mother], and multiple recurrent bouts of ileus, all treated at [facility] who presented to the hospital emergency department with complaints of 3 episodes of syncope. Significant Labs: Hemoglobin 5.3, hematocrit 17.0, MCV 69, RDW 24, BMP unremarkable, lactate 2.9, INR 1.19, all within 3.1 CTA abdomen and pelvis: Diffuse wall thickening of the colon, consistent with colitis which may be inflammatory or infectious in etiology. No specific findings for ischemic colitis. The entirety of the colon appears to lie in the central to left abdomen, with small bowel located in the central to right abdomen; appearance favors intestinal malrotation. Colonoscopy(12/08/16): 1. Grossly normal colonic mucosa and normal-appearing right-sided surgical anastomosis. 2. Inflamed internal hemorrhoids. 3. No active bleeding or evidence of inflammatory bowel disease appreciated. Assessment : 1. Symptomatic anemia /lower GI bleed status post colonoscopy 2. Syncopal episodes 3. Hemorrhoids 4. Gastroshisis 5. Hypokalemia Plan * He is status post 3 units of blood transfusion. H&H from this morning pending. No dizziness, lightheadedness or shortness of breath at this point. Patient's anemia is likely secondary to bleeding from the internal hemorrhoids. Colonoscopy revealed inflamed internal hemorrhoids. No other active bleeding source was identified. * We will continue supplementation with 325 mg iron 3 times a day. * Antibiotics has been discontinued as no evidence of inflammatory bowel disease was found on colonoscopy. He received ceftriaxone and Flagyl previously. * Continue oral supplementation for hypokalemia and hypomagnesemia * Continue local/topical treatment for hemorrhoids as needed. * Patient will be flying back to [place] on Sunday. He has an appointment with his GI doctor on Sunday(12/13/2016). Will require an upper endoscopy and small bowel PillCam to further evaluate the etiology of his anemia which can be pursued as an outpatient. * Consideration should be given for a colorectal surgery consult for more definitive treatment in the future. * Followup Colonscopy Screening at the age of 49 Problem List: 1. Symptomatic anemia 2. Lower GI bleed 3. Syncope Pain Ratin Pain Location: na Pain Goal: Remain pain free Pain Plan: tylenol Tomorrow's Labs & Rationales: none as pt is being discharged TAMIKO ALVARADO MD 12/09/162056: Attending MD Review Statement Attending Statement Attending MD Statement: examined this patient, discuss w/resident/PA/MANAGER TRACK, agreed w/resident/PA/MANAGER TRACK, reviewed EMR data (avail) Attending Assessment/Plan: Patient feels well and is asymptomatic. Feels vastly improved following blood transfusion. Underwent flexible sigmoidoscopy with no acute bleeding noted. Patient had small amount of blood in his stool today which is normal for him. He feels well and wishes to go home, where he will follow up with his GI doctor later this week. Transfused 1 unit pRBC today with appropriate response. Patient is stable for discharge home with outpatient follow up, should return to ED if he feels weak or notes significant bloody stool.
[2016-12-09] MEDS ORDERED: MAGNESIUM OXID400 M1 PO (09:55)
[2016-12-09] MEDS ORDERED: K-TAB ER20 MEQ PO (09:58)
[2016-12-09] MEDS ORDERED: ANUSOL-HC30 GM TOP (10:04)
[2016-12-09 11:14] VITALS: BP 122/54
[2016-12-09 15:15] VITALS: BP 120/72
[2016-12-09 16:44] LABS: ABSOLUTE BASOPHIL COUNT 0 /CUMM (0.0-0.2); ABSOLUTE EOSINOPHIL COUNT 0 /CUMM (0.0-0.7); ABSOLUTE GRANULOCYTE CT 3.1 /CUMM (1.4-6.5); ABSOLUTE LYMPH COUNT 1.2 /CUMM (1.2-3.4); ABSOLUTE MONOCYTE COUNT 0.5 /CUMM (0.10-0.60); BASOPHIL % 0.6 % (0.0-2.0); EOSINOPHIL % 0.7 % (0-5); WHITE BLOOD CELL COUNT 4.9 /CUMM (4.8-10.8)
[2016-12-09 16:59] LABS: GRANULOCYTE % 62.7 % (42.2-75.2); MEAN CORPUSCULAR HGB 25.9 PG (27.0-31.0); MEAN CORPUSCULAR HGB CONC 32.5 G/DL (33.0-37.0); MEAN CORPUSCULAR VOLUME 79.7 FL (80.0-94.0); PLATELET COUNT 171 /CUMM (130-400); RBC DISTRIBUTION WIDTH 22.5 % (11.5-14.5)
[2016-12-09 17:00] LABS: HEMATOCRIT 27.6 % (42-52); RED BLOOD CELL CT 3.47 /CUMM (4.70-6.10)
--- NOTE | 2016-12-10 21:03 | Discharge Summary ---
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 ED Course -Vitals: Temp 98.0 - 98.7, HR 88-127, RR 18-20, BP 110-138/63-72, O2 98-100% on room air -Significant Labs: WBC 10.2, Hgb/Hct 5.3/17.0, Plt 187, Na 134, K 3.1, Lactic acid 2.9, Iron <10, TIBC 394, Ferritin 6.6, B12 285 -Studies: CTA abd/pelvis- diffuse wall thickening of colon consistent with colitis with altered anatomy Bright Red Blood Per Rectum / History of Gastroschisis and internal/external bleeding hemorroids Patient was admitted to the general medicine floor for further evaluation. Type & screen was ordered, consent for tranfusion was obtained, patient was transfused three units of packed red blood cells. He was seen and evaluated by GI whom preformed a flexible sigmoidoscopy that was unremarkable other than visualization of patients known hemorrhoids. Patient was started on iron supplements and lidocaine topical cream and instructed to follow a low fiber diet[facility] [place] [facility] [place] to return [place] on [place]. He was discharged with the previosuly stated instructions and also encouraged to establish care and follow closely with a fitness services manager that is local to him. Allergies: Coded Allergies: lactose (LACTOSE INTOLERANT 12/07/16) latex (HIVES 12/07/16) Significant Procedures: SERVICE DATE: 12/07/16 EXAM TYPE: CAT - CT ABD & PELVIS ANGIOGRAM IMPRESSION: Diffuse wall thickening of the colon, consistent with colitis which may be inflammatory or infectious in etiology. No specific findings for ischemic colitis. The entirety of the colon appears to lie in the central to left abdomen, with small bowel located in the central to right abdomen; appearance favors intestinal malrotation. Colonoscopy Procedure Medical History: unchanged (see meditech consult) Mental Status: alert/oriented Heart/Lung Eval Prior to Sedation: within normal limits Candidate for Sedation? Yes Date of Last Colonoscopy: Approximatlely 2 years ago per patient report. Procedure Date: 12/08/16 Procedure Type: colonoscopy Shell Sieve Operator: Dwight Oliveira MD ASA Classification: III Indications: Rectal bleeding. Microcytic anemia. Colitis on CAT scan. Instrument (Colonoscope): single channel Meds Received: MAC Patient's Tolerance: good Complications: none Extent Reached: neoterminal ileum Prep: good Procedure: After getting written informed consent the patient was placed in the left lateral decubitus position with pulse oximetry, cardiac monitoring, and supplemental oxygen was given. IV sedation was given until the desired effect was achieved. A rectal exam was performed which was normal. A high definition variable stiffness Olympus colonoscope was then inserted into the anus and advanced to the neoterminal ileum with little difficulty. Retroflexed views were obtained and photodocumentation was obtained. Close inspection of the colonic mucosa was performed on insertion and withdrawal of the colonoscope with a withdrawal time that was adequate in length to closely inspect all folds and blas of the colon. Findings: The visualized colonic mucosa including views of the rectum, sigmoid, descending , transverse, and ascending and there was a normal-appearing right-sided surgical anastomosis. The neoterminal ileum was able to be entered a short distance and was grossly normal in appearance with normal villi. There were no polyps, masses, ulcers, significant erythematous changes, AVMs or diverticula appreciated. Retroflexed views in the rectum revealed small inflamed internal hemorrhoids which were also appreciated on close inspection of the anal canal when the scope was withdrawn. Impression: 1. Grossly normal colonic mucosa and normal-appearing right-sided surgical anastomosis. 2. Inflamed internal hemorrhoids. 3. No active bleeding or evidence of inflammatory bowel disease appreciated. Disposition Summary Disposition Principal Diagnosis: Acute Blood Loss anemia Additional Diagnosis: Bleeding hemorroids Discharge Disposition: home or self care Discharge Instructions General Discharge Information Code Status: Full Code Patient's Diet: Low Fiber Diet Patient's Activity: Return to full activity as tolerated Follow-Up Instructions/Appts: -Follow up with your fitness services manager as scheduled. -Continue local aointment for hemorrhoids. f/u with PCP in 1 week and check hemoglobin level, potassium and magnesium levels. -Take iron supplements three times a day for your low blood count. This medication may cause constipation. Medications at Discharge Discharge Medications: Start taking the following new medications: Ferrous Sulfate (Ferrous Sulfate) 325 MG (65 MG IRON) TABLET 1 Tablet ORAL THREE TIMES DAILY Qty = 90 No Refills Comments: Last Taken:12/09/16 Time: 2 PM Hydrocortisone (Anusol-Hc) 2.5 % CREAM..G. 1 Application On the skin TWICE DAILY Qty = 1 No Refills Instructions: apply to affected area(s) Comments: NOT GIVEN WHILE IN HOSPITAL Potassium Chloride (K-Tab ER) 20 MEQ TABLET.ER 1 Tablet ORAL DAILY Qty = 14 No Refills Comments: Last Taken: 12/09/16 Time: 11AM Magnesium Oxide (Magnesium Oxide) 400 MG TABLET 1 Tablet ORAL DAILY Qty = 14 No Refills Comments: Last Taken: 12/09/16 Time: 11AM Copies To: MANI MEZA M.D; JUN HERNANDEZ,DWIGHT
== END 2016-12-09 17:38 | DRG 249 ==
LOC: ERH 21:26 → 2NA 23:26 → ERHI 23:26 → ENRESERV 23:49 → 2NA 12-08 00:38
PROVIDERS: Internal Medicine Cardiovascular Disease; Internal Medicine Interventional Cardiology; Physician Assistant Medical; Student in an Organized Health Care Education/Training Program; ADMIT Internal Medicine
PROC: 30233N1 Transfusion of Nonautologous Red Blood Cells into Peripheral Vein, Percutaneous Approach (ICD-10-PCS; 2016-12-07)
PROC: 0DJD8ZZ Inspection of Lower Intestinal Tract, Via Natural or Artificial Opening Endoscopic (ICD-10-PCS; principal; 2016-12-08)
DX: K52.9 Noninfective gastroenteritis and colitis, unspecified (principal); Z91.14 Patient's other noncompliance with medication regimen; F12.90 Cannabis use, unspecified, uncomplicated; R55 Syncope and collapse; F17.210 Nicotine dependence, cigarettes, uncomplicated; K64.9 Unspecified hemorrhoids; E87.6 Hypokalemia; K64.8 Other hemorrhoids; Z87.19 Personal history of other diseases of the digestive system; F17.200 Nicotine dependence, unspecified, uncomplicated; D50.0 Iron deficiency anemia secondary to blood loss (chronic)
CPT/HCPCS: 2NAP; ERO; 36415; 74174; 82436; 86920; 87045; 87328; 87329; 93005; 93010; 99291; J0696; P9016